=== PATIENT | male | born 1965 | race Caucasian/White ===

== ENCOUNTER 2017-09-14 20:38 | Observation (INO) | payer BC ==
[2017-09-14] MEDS ORDERED: NS 0.9% 1000 ML* 1,000 ML IV ONE (21:02)
[2017-09-14 21:15] LABS: ABS Basophils 0.1 10^3/ul (0-0.2); ABS Eosinophils 0.2 10^3/ul (0-0.6); ABS Lymphocytes 3.3 10^3/ul (1.0-4.8); ABS Monocytes 0.4 10^3/ul (0-0.8); ABS Neutrophils 4.9 10^3/ul (1.5-7.7); ABS Nucleated RBC 0 10^3/ul; Eosinophil % 1.7 % (0-6); Hematocrit 40 % (42-52); Hemoglobin 13.9 g/dl (14.0-18.0); Lymphocyte % 37.8 % (25-47); Mean Corpuscular HGB Conc 34 g/dl (31-36); Mean Corpuscular Hemoglobin 28 pg (27-31); Mean Corpuscular Volume 82 fL (80-94); Mean Platelet Volume 9.5 um3 (7.4-10.4); Nucleated Red Blood Cells % 0; Platelet Count 201 10^3/ul (150-450); Red Blood Count 4.96 10^6/ul (4.00-5.40); Red Cell Distribution Width 14 % (10.5-15); White Blood Count 8.8 10^3/ul (3.5-10.8)
[2017-09-14 21:32] LABS: EGFR Non-African American 56.7 (>60)
[2017-09-14] MEDS ORDERED: Ondansetron ODT TAB* 4 MG PO ONE (21:52)
--- NOTE | 2017-09-14 21:57 | ED ---
Syncope/Near Syncope - HPI Summary HPI Summary: Complains of syncopal episode x 3. First episode after he got up from the dinner table, with subsequent fall and hitting head on the side of a table. Second syncopal episode while getting onto the gurney for EMS. Third up episode in EMS truck en route [place] [facility] [place] with associated bradycardia. Patient also complains of nausea, feeling dehydrated. Denies any symptoms prior to syncope . 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 History of syncope about once a year. Prior episodes of syncope related to migraine, stress. Unaware of cardiac workup ever being done. Denies any cardiac or pulmonary history. Denies any BARON, vision change, focal deficits, neck pain or any other pain related to fall, fever, cough, sore throat, CP, SOB , N/V/V abdominal pain, change in urinary BM. Medical history is migraines. Nonsmoker, occasional EtOH, and denies illegal drugs other than marijuana. Does admit to some marijuana use today. Patient is here visiting. Denies family cardiac history. - History Of Current Complaint Chief Complaint: EDSyncope Time Seen by Provider: 09/14/17 20:46 Hx Obtained From: Patient, Family/Inventory And Pricing Associate Onset/Duration: Sudden Onset Timing: Seconds Context: Witnessed Activity At Onset: At Rest Associated Head Trauma: Yes Aggravating Factor(s): Position Change Alleviating Factor(s): Spontaneous Resolution - Risk Factors Cardiac Risk Factors: Negative Dysrhythmia Risk Factors: Age Greater Than 45 Risk Factor(s): Negative - Allergies/Home Medications Allergies/Adverse Reactions: Allergies Allergy/AdvReac Type Severity Reaction Status Date / Time No Known Allergies Allergy Verified 09/14/17 20:45 Home Medications: Home Medications NK [No Home Medications Reported] 09/14/17 [History Confirmed 09/14/17] PMH/Surg Hx/FS Hx/Imm Hx Previously Healthy: Yes Endocrine/Hematology History: Denies: Hx Anticoagulant Therapy Cardiovascular History: Denies: Hx Cardiac Arrest History: Denies: Hx Dialysis Neurological History: Denies: Hx CVA Infectious Disease History: No Infectious Disease History: Denies: Traveled Outside the [place] in Last 30 Days - Social History Alcohol Use: Occasionally Substance Use Type: Reports: Marijuana Hx Tobacco Use: No Smoking Status (MU): Never Smoked Tobacco Review of Systems Constitutional: Negative Eyes: Negative ENT: Negative Cardiovascular: Negative Respiratory: Negative Gastrointestinal: Negative Genitourinary: Negative Musculoskeletal: Negative Skin: Negative Positive: Syncope Psychological: Normal All Other Systems Reviewed And Are Negative: Yes Physical Exam - Summary Physical Exam Summary: Patient alert and oriented, states he is feeling better. Triage Information Reviewed: Yes Vital Signs On Initial Exam: Initial Vitals Temp Pulse Resp BP Pulse Ox 97.5 F 62 14 105/68 98 09/14/17 20:40 09/14/17 20:40 09/14/17 20:40 09/14/17 20:40 09/14/17 20:40 Vital Signs Reviewed: Yes Appearance: Positive: Well-Appearing Skin: Positive: Warm Head/Face: Positive: Normal Head/Face Inspection Eyes: Positive: Normal Neck: Positive: Supple Respiratory/Lung Sounds: Positive: Clear to Auscultation Cardiovascular: Positive: Bradycardia Abdomen Description: Positive: Nontender Musculoskeletal: Positive: Normal Neurological: Positive: Normal Psychiatric: Positive: Normal AVPU Assessment: Alert - Loy Coma Scale Best Eye Response: 4 - Spontaneous Best Motor Response: 6 - Obeys Commands Best Verbal Response: 5 - Oriented Coma Scale Total: 15 Diagnostics - Vital Signs Vital Signs Temp Pulse Resp BP Pulse Ox 09/14/17 20:40 97.5 F 62 14 105/68 98 - Laboratory Lab Results: Lab Results 09/14/17 09/14/17 09/14/17 Range/Units 21:04 21:04 21:04 WBC 8.8 (3.5-10.8) 10^3/ul RBC 4.96 (4.00-5.40) 10^6/ul Hgb 13.9 L (14.0-18.0) g/dl Hct 40 L (42-52) % MCV 82 (80-94) fL MCH 28 (27-31) pg MCHC 34 (31-36) g/dl RDW 14 (10.5-15) % Plt Count 201 (150-450) 10^3/ul MPV 9.5 (7.4-10.4) um3 Neut % (Auto) 55.3 (38-83) % Lymph % (Auto) 37.8 (25-47) % [place] % (Auto) 4.4 (0-7) % Eos % (Auto) 1.7 (0-6) % Baso % (Auto) 0.8 (0-2) % Absolute Neuts (auto) 4.9 (1.5-7.7) 10^3/ul Absolute Lymphs (auto) 3.3 (1.0-4.8) 10^3/ul Absolute Monos (auto) 0.4 (0-0.8) 10^3/ul Absolute Eos (auto) 0.2 (0-0.6) 10^3/ul Absolute Basos (auto) 0.1 (0-0.2) 10^3/ul Absolute Nucleated RBC 0 10^3/ul Nucleated RBC % 0 D-Dimer, Quantitative < 200 (Less Than 230) ng/mL Sodium 138 (135-145) mmol/L Potassium 3.7 (3.5-5.0) mmol/L Chloride 103 (101-111) mmol/L Carbon Dioxide 25 (22-32) mmol/L Anion Gap 10 (2-11) mmol/L BUN 23 (6-24) mg/dL Creatinine 1.33 H (0.67-1.17) mg/dL Est GFR ( Amer) 68.6 (>60) Est GFR (Non-Af Amer) 56.7 (>60) BUN/Creatinine Ratio 17.3 (8-20) Glucose 120 H (70-100) mg/dL Lactic Acid (0.5-2.0) mmol/L Calcium 9.1 (8.6-10.3) mg/dL Magnesium 2.2 (1.9-2.7) mg/dL Total Bilirubin 0.60 (0.2-1.0) mg/dL AST 26 (13-39) U/L ALT 23 (7-52) U/L Alkaline Phosphatase 54 (34-104) U/L Troponin I 0.00 (<0.04) ng/mL B-Natriuretic Peptide ( - 100) pg/mL Total Protein 6.8 (6.4-8.9) g/dL Albumin 4.3 (3.2-5.2) g/dL Globulin 2.5 (2-4) g/dL Albumin/Globulin Ratio 1.7 (1-3) TSH 2.48 (0.34-5.60) mcIU/mL Serum Alcohol < 10 (<10) mg/dL 08/03/18 08/03/18 Range/Units 21:04 21:04 WBC (3.5-10.8) 10^3/ul RBC (4.00-5.40) 10^6/ul Hgb (14.0-18.0) g/dl Hct (42-52) % MCV (80-94) fL MCH (27-31) pg MCHC (31-36) g/dl RDW (10.5-15) % Plt Count (150-450) 10^3/ul MPV (7.4-10.4) um3 Neut % (Auto) (38-83) % Lymph % (Auto) (25-47) % [place] % (Auto) (0-7) % Eos % (Auto) (0-6) % Baso % (Auto) (0-2) % Absolute Neuts (auto) (1.5-7.7) 10^3/ul Absolute Lymphs (auto) (1.0-4.8) 10^3/ul Absolute Monos (auto) (0-0.8) 10^3/ul Absolute Eos (auto) (0-0.6) 10^3/ul Absolute Basos (auto) (0-0.2) 10^3/ul Absolute Nucleated RBC 10^3/ul Nucleated RBC % D-Dimer, Quantitative (Less Than 230) ng/mL Sodium (135-145) mmol/L Potassium (3.5-5.0) mmol/L Chloride (101-111) mmol/L Carbon Dioxide (22-32) mmol/L Anion Gap (2-11) mmol/L BUN (6-24) mg/dL Creatinine (0.67-1.17) mg/dL Est GFR ( Amer) (>60) Est GFR (Non-Af Amer) (>60) BUN/Creatinine Ratio (8-20) Glucose (70-100) mg/dL Lactic Acid 1.2 (0.5-2.0) mmol/L Calcium (8.6-10.3) mg/dL Magnesium (1.9-2.7) mg/dL Total Bilirubin (0.2-1.0) mg/dL AST (13-39) U/L ALT (7-52) U/L Alkaline Phosphatase (34-104) U/L Troponin I (<0.04) ng/mL B-Natriuretic Peptide 15 ( - 100) pg/mL Total Protein (6.4-8.9) g/dL Albumin (3.2-5.2) g/dL Globulin (2-4) g/dL Albumin/Globulin Ratio (1-3) TSH (0.34-5.60) mcIU/mL Serum Alcohol (<10) mg/dL Result Diagrams: 09/14/17 21:04 09/14/17 21:04 Lab Statement: Any lab studies that have been ordered have been reviewed, and results considered in the medical decision making process. - EKG 1 Cardiac Rate: Bradycardia EKG Rhythm: Sinus Bradycardia ST Segment: Normal Ectopy: None EKG Interpretation: no stemi Course/Dx Course Of Treatment: Complains of syncopal episode x 3. First episode after he got up from the dinner table, with subsequent fall and hitting head on the side of a table. Second syncopal episode while getting onto the gurney for EMS. Third up episode in EMS truck en route to [facility] [place] with associated bradycardia. Patient also complains of nausea, feeling dehydrated. Denies any symptoms prior to syncope . 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 History of syncope about once a year. Prior episodes of syncope related to migraine, stress. Unaware of cardiac workup ever being done. Denies any cardiac or pulmonary history. Denies any BARON, vision change, focal deficits, neck pain or any other pain related to fall, fever, cough, sore throat , CP, SOB, N/V/V abdominal pain, change in urinary BM. Medical history is migraines. Nonsmoker, occasional EtOH, and denies illegal drugs other than marijuana. Does admit to some marijuana use today. Patient is here visiting. Labs and imaging unremarkable. 2 episodes of syncope [id number]. - Diagnoses Provider Diagnoses: Recurrent syncope Discharge - Sign-Out/Discharge Documenting (check all that apply): Patient Departure - Discharge Plan Condition: Fair Disposition: ADMITTED TO [facility] - Billing Disposition and Condition Condition: FAIR Disposition: Admitted to [facility]
[2017-09-14] MEDS ORDERED: Acetaminophen TAB* 325 MG PO PRN (23:04)
[2017-09-14] MEDS ORDERED: PROCHLORPERAZINE INJ 5 MG/ML 2 ML VIAL IV PRN (23:04)
[2017-09-14] MEDS ORDERED: NS 0.9% 1000 ML* 1,000 ML IV SCH (23:15)
[2017-09-15 01:10] LABS: Urine Appearance Clear; Urine Blood Negative (Negative); Urine Color Yellow; Urine Ketones Negative (Negative); Urine Protein Negative (Negative); Urine Specific Gravity 1.006 (1.010-1.030); Urine Urobilinogen Negative (Negative)
--- NOTE | 2017-09-15 02:31 | HP ---
CC: Dr. Donny Reyna in [place], [place], phone number is [phone] HISTORY AND PHYSICAL: DATE OF ADMISSION: 09/14/17 PRIMARY CARE PROVIDER: Dr. Donny Reyna in [place], [place], phone number is [phone]. CHIEF COMPLAINT: "I passed out." HISTORY OF PRESENT ILLNESS: Mr. Gonsalez is a 52-year-old male with a past medical history of migraines, who presented to the emergency room after multiple syncopal episodes today. 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 He says that he went with a la rge body of family members to a restaurant and states that the place was feeling crowded. He started to feel like he was going to pass out. He tried to walk outside and he passed out. He states that "everyone was around him and his sister describes that they sat him on a chair and when they went to move him to the EMS gurney he passed out again." She states that the EMS crew also informed them kirk t he had passed out in the ambulance. The patient states that he has had syncopal episodes before. He describes having a syncopal episode every 2 to 3 years and it was related to dehydration. His las t episode was a couple of years ago and that one was associated with severe migraine episode. At this time, he denies chest pain, palpitations. He states that the nausea he felt it is improved. He is actually feeling hungry. The patient states that he is trying to cut down carbs so basically today he ate just protein. He do es not think that he drank enough fluids because he had some water in the morning then some coffee, b ut did not drink any water during his trip. He denies vomiting, diarrhea, or urinary complaints. This afternoon before going to the rest room, he states that he smoked some "marijuana vape" with his cousins and he states that he did not feel any different but this is not the usual marijuana that he smokes. PAST MEDICAL HISTORY: Migraines. MEDICATION LIST: None. ALLERGIES: No known drug allergies. FAMILY HISTORY: Father passed of non-Hodgkin lymphoma. Mother has a history of hypotension and sync opal episodes. Multiple siblings have a history of obesity, hypertension, and hyperlipidemia. SOCIAL HISTORY: The patient states that he smokes marijuana daily in the evenings. He states that he drinks 2 to 3 drinks a week, the last one was whisky that he had yesterday. He denies any other harpal g use including heroin, cocaine, and he was never a smoker. Surrogate decision maker is his sister, Angely William, phone number is [phone]. REVIEW OF SYSTEMS: A 14-point review of systems was performed and all the pertinent negative and pos itive findings are in the HPI. PHYSICAL EXAMINATION GENERAL: The patient is a pleasant middle-aged gentleman, lying in the ED stretcher, in no acute dis tress. VITAL SIGNS: Temperature 97.5, heart rate is 73, respiratory rate is 19, oxygen saturation is 97% on room air, blood pressure is 136/79. HEENT: Pupils are equal. Moist mucous membranes. CHEST: Breath sounds present bilaterally with no added sounds. CVS: Normal S1, S2. Regular rate and rhythm. ABDOMEN: Soft. Bowel sounds are present. EXTREMITIES: No edema. NEURO: He is alert, awake, and oriented x3. Able to move all 4 extremities. LABORATORY AND IMAGING DATA: The patient had a CBC that showed WBC of 8.8, hemoglobin of 13.9, dimitrios tocrit of 40, platelets of 201 with 55% neutrophils. D- dimer was less than 200. Chemistry showed a sodium of 138, potassium of 3.7, chloride of 103, bicarb of 25, BUN of 23, creatinine of 1.3, glucos e of 120, lactic acid 1.2, calcium of 9.1, magnesium 2.2. LFTs are normal. Troponin is 0. Serum al cohol level was less than 10. EKG done on 09/14/17 at 2114 showed sinus bradycardia at 58 beats per minute with no ST-T changes. C hest x-ray is not yet officially read but to my read shows no acute disease. ASSESSMENT AND PLAN: Mr. Gonsalez is a 52-year-old male with a past medical history of migraines, who pr esented to the emergency room after multiple syncopal episodes today, likely secondary to dehydration . 1. Syncopal episode. I suspect this is likely secondary to dehydration, but the patient already has a history of syncopal episodes. 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 Another factor could be the change in his diet, alcohol use yesterday, poor fluid intake today, and also smoking a "different" marijuana. The patient will be admitted as observation to telemetry floor. We are going to monitor his rhythm. He will receive IV hydration and we will monitor his symptoms. Orthostatic vital signs were negative in the emergency room. The patient would like to be discharged early tomorrow if he is feeling well as he still has the wedd ing to attend tomorrow. We will try to obtain records from his primary care provider as his creatinine is elevated now, likel y prerenal in the setting of dehydration but it would be nice to have baseline renal function. The patient states that he is due to have his physical with his primary care provider and he was enco uraged to keep up his appointment. 2. DVT prophylaxis. The patient has a score of 1 on a DVT Prophylaxis Risk Assessment Guide and he will have SCDs. 3. Code status is full. TIME SPENT: Approximately 45 minutes were spent for this admission. [id number]/[facility] #: [id number]
--- NOTE | 2017-09-15 07:38 | RAD ---
Indication: Syncope. 2 views of the chest are reviewed. No prior study is available for comparison. No mediastinal shift is noted. Heart is of normal size and configuration. Lung riojas are clear. IMPRESSION: No active cardiopulmonary disease is noted. R1
--- NOTE | 2017-09-15 09:16 | PN ---
Subjective Date of Service: 09/15/17 Interval History: Patient seen and examined at bedside. Denies fever, chills, lightheadedness or dizziness, shortness of breath, chest discomfort, N/V/D. Pt has been able to ambulate in the halls without difficulty. Tele: sinus rhythm, rate 60-70's Family History: Unchanged from Admission Social History: Unchanged from Admission Past Medical History: Unchanged from Admission Objective Active Medications: Acetaminophen (Tylenol Tab*) 650 mg PO Q6H PRN Reason: pain/fever Sodium Chloride (Ns 0.9% 1000 Ml*) 1,000 mls @ 150 mls/hr IV PER RATE KETTY Prochlorperazine Edisylate (Compazine Inj*) 5 mg IV Q6H PRN Reason: NAUSEA/ VOMITING Vital Signs - 8 hr 09/15/17 04:21 Temperature 97.2 F Pulse Rate 65 Respiratory 16 Rate Blood Pressure 107/49 (mmHg) O2 Sat by Pulse 97 Oximetry Oxygen Devices in Use Now: None Appearance: NAD, laying in bed Ears/Nose/Mouth/Throat: Mucous Membranes Moist Respiratory: Symmetrical Chest Expansion and Respiratory Effort, Clear to Auscultation Cardiovascular: NL Sounds; No Murmurs; No JVD, RRR Abdominal: NL Sounds; No Tenderness; No Distention Extremities: No Edema Skin: No Rash or Ulcers Neurological: Alert and Oriented x 3, NL Muscle Strength and Tone Lines/Tubes/Other Access: Clean, Dry and Intact Peripheral IV - site benign Nutrition: Taking PO's Result Diagrams: 09/14/17 21:04 09/15/17 05:29 Additional Lab and Data: . Assess/Plan/Problems-Billing Assessment: Mr. Gonsalez is a 52 yo male with PMH significant for migraines who presented to the emergency room after a syncopal episode. - Patient Problems (1) Syncope Code(s): R55 - SYNCOPE AND COLLAPSE SNOMED Code(s): 656662522 Comment: - No further episodes - Suspect secondary to dehydration - No orthostatsis noted last night (2) STEPHANIE (acute kidney injury) Code(s): N17.9 - ACUTE KIDNEY FAILURE, UNSPECIFIED SNOMED Code(s): 14784323 Comment: - Resolved with IV hydration - Suspect secondary to dehydration (3) DVT prophylaxis Code(s): [id number] - SNOMED Code(s): 291765146 (4) Full code status Code(s): Z78.9 - OTHER SPECIFIED HEALTH STATUS SNOMED Code(s): 977984015 Status and Disposition: OBV. Stable for discharge to home today.
[2017-09-15 10:12] VITALS: BP 103/54
--- NOTE | 2017-09-15 21:24 | DS ---
CC: Dr. Donny Reyna, [place], [place] * DISCHARGE SUMMARY: DATE OF ADMISSION: 09/14/17 DATE OF DISCHARGE: 09/15/17 ATTENDING PHYSICIAN: Dr. Valeriy Michel * (dictated by Demetris Westfall NP). PRIMARY CARE PROVIDER: Dr. Donny Reyna in [place], [place], phone number is [phone]. PRIMARY DIAGNOSES: 1. Syncope, suspect secondary to dehydration. 2. Acute kidney injury, suspect secondary to dehydration. SECONDARY DIAGNOSIS: Migraines. STUDIES WHILE IN THE HOSPITAL: Chest x-ray on 09/14/17. Radiologist's impression: No active cardiopulmonary disease is noted. DISCHARGE MEDICATIONS: None. HISTORY OF PRESENT ILLNESS/HOSPITAL COURSE: Mr. Gonsalez is a 52-year-old male with past medical history significant for migraines, who presented to the emergency room after 3 syncopal episodes on the day of presentation. 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 He reports driving 5 hours from [place] up to [place] for a wedding. He reports not drinking anything other than coffee in the morning, as he did not have to stop to use the bathroom along the way. He then was at a busy restaurant feeling anxious due to the number of people in there. He went to get some fresh air. He felt as though he was going to pass out and passed out. When he awoke, everyone was around him. His sister described setting him on a chair and then when EMS went to place him on a stretcher, he passed out again. The patient also reportedly passed out again in the ambulance on the way to the hospital. The patient reports having syncopal episodes every 1 to 2 years that he feels is secondary to dehydration most often while he is at work, as he feels he does not stay hydrated enough as he is getting older requiring more hydration. He reports his last episode was 1 or 2 years ago, it was also associated with a severe migraine. The patient denied any fevers, chills, chest pain, palpitation, shortness of breath. While in the emergency room, the patient had a chest x-ray showing no acute findings. He had an EKG showing a sinus bradycardia with a rate of 58 and hospitalists were asked to evaluate the patient for admission. While in the hospital, the patient was treated with IV fluids. He was not orthostatic. His acute kidney injury resolved. The patient had no events noted on telemetry. His troponins were flat at 0.00 and 0.001. The patient was able to ambulate in the halls. He was feeling well, anxious for discharge today. Mr. Gonsalez is stable for discharge to home today. Vital signs are as follows: Temperature 98.2, heart rate 68, respiratory rate 16, O2 sat 96% on room air, blood pressure 103/54. DISCHARGE PLAN: Mr. Gonsalez will be discharged to home. Activity as tolerated. He will be on a regular diet. He has been encouraged to stay hydrated and to avoid alcohol as it will contribute to dehydration. In regards to the patient' s syncopal episode, I suspect this is secondary to dehydration. The patient reports this happening quite frequently. He may benefit from a Holter monitor for the cardiac workup as he could have an underlying cardiac issue contributing to his syncopal episodes. Further workup could include stress test and echocardiogram if not previously done in the past. The patient has been asked to keep his yearly physical already set up for this month with Dr. Reyna. He has been asked to return to an emergency room during his travels if he develops shortness of breath, chest pain, or another syncopal episode. This is a summarized report of a complex medical history and hospital stay. For further details, please see the entire medical record. TIME SPENT: Time for this discharge was approximately 50 minutes, greater than half of that was spent with the patient and his family discussing discharge plans and instructions. CONDITION ON DISCHARGE: Stable. DEMETRIS FERRELL, FABIO [id number]/[facility] #: [id number] MEG
== END 2017-09-15 09:55 | disposition home or self-care (01) ==
LOC: ED 20:38 → MEDTELE 23:01
PROVIDERS: ADMIT Internal Medicine; ATTEND Internal Medicine
DX: R55 Syncope and collapse (principal); N17.9 Acute kidney failure, unspecified; E86.0 Dehydration
CPT/HCPCS: 36415; 71046; 80048; 80053; 80307; 80320; 80364; 81003; 83605; 83735; 83880; 84443; 84484; 85025; 85379; 93005; 99285; A9270-GY; G0378; G0480